=== PATIENT | female | born 1955 | race Two or more races ===

== ENCOUNTER 2022-07-09 07:30 | Day surgery (SDC) | payer OTHER | END 2022-07-09 12:00 | disposition home or self-care (01) | LOC: AMB-ENDOS 07:30 | PROVIDERS: ATTEND Colon & Rectal Surgery | DX: K63.5 Polyp of colon (principal); K52.89 Other specified noninfective gastroenteritis and colitis; Z20.822 Contact with and (suspected) exposure to COVID-19; Z85.72 Personal history of non-Hodgkin lymphomas; Z85.89 Personal history of malignant neoplasm of other organs and systems ==